=== PATIENT | female | born 1965 | race Caucasian/White ===

== ENCOUNTER 2017-08-06 23:10 | Emergency (ER) | payer BC ==
[2017-08-06 23:11] VITALS: BMI 23.5
[2017-08-07 00:23] VITALS: O2SAT 99
[2017-08-07] MEDS ORDERED: TDAP Vaccine 0.5 mL Syr IM ONE (00:28)
--- NOTE | 2017-08-07 00:33 | ED PDOC ---
Arrival/HPI <Edgar Cabrera - Last Filed: 08/07/17 00:59> - General Historian: Patient, Spouse - History of Present Illness Time/Duration: Prior to Arrival Symptom Onset: Sudden Symptom Course: Unchanged Quality: Unable to Describe Severity Level: 1 Activities at Onset: Rest Context: Home <Tenisha Sung - Last Filed: 08/07/17 11:44> - General Chief Complaint: Abnormal Skin Integrity Time Seen by Provider: 08/07/17 00:28 - History of Present Illness Narrative History of Present Illness (Text): 08/07/17 00:28 Pt is a 52 yr old female who presents to the ED for a small, superficial cut to her right middle finger s/p contact with a carpet staple while renovating at home. Pt is here for a Tetanus booster because she has not had one in over 10 yrs. Denies dysfunction of the hand or finger and has no other complaints at this time. (Tenisha Sung) Past Medical History - Provider Review Nursing Documentation Reviewed: Yes - Travel History Have you recently traveled outside [place] w/in the past 3 mons?: No - Infectious Disease Hx of Infectious Diseases: None - Past Medical History Past Medical History: No Previous - Cardiac Hx Hypertension: Yes - Endocrine/Metabolic Hx Hypothyroidism: Yes - Psychiatric Hx Depression: No Hx Emotional Abuse: No Hx Physical Abuse: No Hx Substance Use: No - Surgical History Hx Hysterectomy: Yes (PARTIAL) - Anesthesia Hx Anesthesia: Yes Hx Anesthesia Reactions: No Hx Malignant Hyperthermia: No - Suicidal Assessment Feels Threatened In Home Enviroment: No <Tenisha Sung - Last Filed: 08/07/17 11:44> Family/Social History - Physician Review Nursing Documentation Reviewed: Yes Family/Social History: Unknown Family HX Smoking Status: Never Smoked Hx Alcohol Use: Yes Frequency of alcohol use: Socially Hx Substance Use: No <Tenisha Sung - Last Filed: 08/07/17 11:44> Allergies/Home Meds <Edgar Cabrera - Last Filed: 08/07/17 00:59> <Tenisha Sung - Last Filed: 08/07/17 11:44> Allergies/Adverse Reactions: Allergies No Known Allergies Allergy (Verified 08/07/17 00:21) Home Medications: Home Meds Medication Instructions Recorded Confirmed Amlodipine Bes/Olmesartan Med 1 tab PO DAILY 07/04/13 08/07/17 [Sandrita 5 mg-20 mg] Levothyroxine Sodium [Synthroid] 0.075 mg PO DAILY 07/04/13 08/07/17 Review of Systems - Review of Systems Constitutional: Normal Eyes: Normal ENT: Normal Respiratory: Normal Cardiovascular: Normal Gastrointestinal: Normal Genitourinary Female: Normal Musculoskeletal: Normal Skin: Normal, Laceration (right middle finger cut) Neurological: Normal Endocrine: Normal Hemo/Lymphatic: Normal Psychiatric: Normal <Tenisha Sung - Last Filed: 08/07/17 11:44> Physical Exam Vital Signs Reviewed: Yes Temperature: Afebrile Blood Pressure: Normal Pulse: Regular Respiratory Rate: Normal Appearance: Positive for: Well-Appearing, Non-Toxic, Comfortable Pain Distress: None Mental Status: Positive for: Alert and Oriented X 3 - Systems Exam Conjunctiva: Present: Normal Respiratory/Chest: Present: Clear to Auscultation. No: Respiratory Distress, Accessory Muscle Use Cardiovascular: Present: Regular Rate and Rhythm, Normal S1, S2. No: Murmurs Abdomen: No: Tenderness, Distention, Peritoneal Signs Back: Present: Normal Inspection Upper Extremity: Present: Normal Inspection. No: Cyanosis, Edema Lower Extremity: Present: Normal Inspection. No: Edema Neurological: Present: GCS=15, CN II-XII Intact, Speech Normal Skin: Present: Warm, Dry, Normal Color, Laceration (very superficial, 2 cm laceration on the right 3rd digit ). No: Rashes Psychiatric: Present: Alert, Oriented x 3, Normal Insight, Normal Concentration <Tenisha Sung - Last Filed: 08/07/17 11:44> Vital Signs Temp Pulse Resp BP Pulse Ox 08/07/17 01:20 98.2 F 70 18 161/86 H 99 08/07/17 00:22 98.1 F 73 17 161/95 H 99 Medical Decision Making <Edgar Cabrera - Last Filed: 08/07/17 00:59> <Tenisha Sung - Last Filed: 08/07/17 11:44> ED Course and Treatment: 08/07/17 00:31 Impression 52 yr old F here for Tet Booster s/p superficail cut to right 3rd digit on the dorsal aspect; on exam, no significant depth to the lac and no irritation to surrounding tissue Plan Tet Booster Assess and Dispo F/u with PMD if increase in redness and swelling or discharge of wound 08/07/17 00:36 VSS on d/c (Tenisha Sung) - Medication Orders Current Medication Orders: Discontinued Medications Tetanus/Reduced Diphtheria/Acell Pertussis (Boostrix Vaccine Inj) 0.5 ml IM .ONCE ONE Stop: 08/07/17 00:29 Last Admin: 08/07/17 00:53 Dose: 0.5 ml - PA / [employer] / Resident Statement / has reviewed & agrees with the documentation as recorded. / has examined the patient and agrees with the treatment plan. <Edgar Cabrera - Last Filed: 08/07/17 00:59> Disposition/Present on Arrival <Edgar Cabrera - Last Filed: 08/07/17 00:59> - Present on Arrival Any Indicators Present on Arrival: Yes History of DVT/PE: No History of Uncontrolled Diabetes: No Urinary Catheter: No History of Decub. Ulcer: No History Surgical Site Infection Following: None - Disposition Have Diagnosis and Disposition been Completed?: Yes Disposition Time: 00:38 Patient Plan: Discharge <Tenisha Sung - Last Filed: 08/07/17 11:44> - Disposition Diagnosis: Tetanus toxoid inoculation, Laceration Disposition: HOME/ ROUTINE Condition: GOOD Additional Instructions: Mildred, Follow up with your Primary care Doctor if the cut begins to increase in redness and swelling or discharge Thank you letting us take care of your today Forms: [employer] ([place] Citizen)
[2017-08-07 01:30] VITALS: BP 161/86; PULSE 70; RESP 18; TEMP 98.2
== END 2017-08-07 01:20 | disposition home or self-care (01) ==
LOC: ED 23:10
DX: S61.312A Laceration without foreign body of right middle finger with damage to nail, initial encounter (principal); W45.8XXA Other foreign body or object entering through skin, initial encounter; Y93.E9 Activity, other interior property and clothing maintenance; Y92.009 Unspecified place in unspecified non-institutional (private) residence as the place of occurrence of the external cause; Z23 Encounter for immunization

== ENCOUNTER 2018-06-16 07:51 | Outpatient (CLI) | payer BC | END 2018-06-16 07:52 | disposition home or self-care (01) | LOC: RAD 07:51 | DX: E03.9 Hypothyroidism, unspecified (principal); D49.519 Neoplasm of unspecified behavior of unspecified kidney; C64.9 Malignant neoplasm of unspecified kidney, except renal pelvis ==